=== PATIENT | female | born 1970 | race African-American/Black ===

== ENCOUNTER 2016-06-22 05:25 | Emergency (ER) | payer BC ==
[2016-06-22] MEDS ORDERED: TETRACAINE HCL 0.5% OPH SOLN 2 ML OD ONE (06:50)
[2016-06-22] MEDS ORDERED: BESIFLOXACIN HCL 0.6% OPH SUSP 5 ML BOTTLE OS ONE (07:35)
--- NOTE | 2016-06-22 07:58 | ER Document Report ---
ED General - General Chief Complaint: Redness of Eye Stated Complaint: EYE IRRITATION TRAVEL OUTSIDE OF THE [place] IN LAST 30 DAYS: No - HPI Patient complains to provider of: left eye irritation Notes: Patient coming in for approximately 4-5 days of left eye irritation. Patient states about 5 days ago felt like there is a rock in her eye states since that time denies been red with some drainage. Patient states recently was exposed to her boyfriend who also has pinkeye. States today he was using over-the- counter treatment she's tried the [id number] treatment as well with no relief. Patient also states she has 2 dark areas the medial epicondyle folds of the eye. Otherwise patient does not wear contacts does wear glasses no other trauma no fevers or chills no nausea no vomiting patient states no visual disturbances no blurry vision or double vision. Patient denies direct eye pain - Related Data Allergies/Adverse Reactions: No Known Allergies Allergy (Unverified 06/22/16 05:30) Past Medical History - Social History Smoking Status: Current Every Day Smoker Chew tobacco use (# tins/day): No Frequency of alcohol use: Occasional Drug Abuse: None Family History: Reviewed & Not Pertinent Patient has suicidal ideation: No Patient has homicidal ideation: No Neurological Medical History: Reports: Hx Migraine Renal/ Medical History: Denies: Hx Peritoneal Dialysis Past Surgical History: Reports: Hx Hysterectomy - Immunizations Hx Diphtheria, Pertussis, Tetanus Vaccination: No Review of Systems - Review of Systems Constitutional: No symptoms reported EENT: Eye discharge Cardiovascular: No symptoms reported Respiratory: No symptoms reported Gastrointestinal: No symptoms reported Genitourinary: No symptoms reported Female Genitourinary: No symptoms reported Musculoskeletal: No symptoms reported Skin: No symptoms reported Hematologic/Lymphatic: No symptoms reported Neurological/Psychological: No symptoms reported -: Yes All other systems reviewed and negative Physical Exam - Vital signs Vitals: Temp Pulse BP Pulse Ox 97.9 F 110 H 142/90 H 100 06/22/16 05:29 06/22/16 05:29 06/22/16 05:29 06/22/16 05:29 Interpretation: Normal - General General appearance: Appears well, Alert - HEENT Head: Normocephalic, Atraumatic Eyes: Normal Conjunctiva: Other - Patient does have 2 black spots in the medial Fold near the tear duct consistent possible staining by mascara is unable to be removed away with a Q-tip Cornea: Flourescein stain uptake, Opacified - Minimal opacification at approximately the 9 o'clock position near scleral ulcer. Extraocular movements intact: Yes Eyelashes: Normal Pupils: PERRL Corrective lenses worn: No Left intraocular pressure: 14 Anterior chamber: Normal Fundascopic: Normal - Respiratory Respiratory status: No respiratory distress Chest status: Nontender Breath sounds: Normal Chest palpation: Normal - Cardiovascular Rhythm: Regular Heart sounds: Normal auscultation Murmur: No - Abdominal Inspection: Normal Distension: No distension Bowel sounds: Normal Tenderness: Nontender Organomegaly: No organomegaly - Back Back: Normal, Nontender - Extremities General upper extremity: Normal inspection, Nontender, Normal color, Normal ROM , Normal temperature General lower extremity: Normal inspection, Nontender, Normal color, Normal ROM , Normal temperature, Normal weight bearing. No: Declan's sign - Neurological Neuro grossly intact: Yes Cognition: Normal Orientation: AAOx4 Dino Coma Scale Eye Opening: Spontaneous Dino Coma Scale Verbal: Oriented Dino Coma Scale Motor: Obeys Commands Dino Coma Scale Total: 15 Speech: Normal Motor strength normal: LUE, RUE, LLE, RLE Sensory: Normal - Psychological Associated symptoms: Normal affect, Normal mood - Skin Skin Temperature: Warm Skin Moisture: Dry Skin Color: Normal Course - Re-evaluation Re-evalutation: 06/22/16 08:15 Slit-lamp examination shows a scleral ulcer with some opacification of the adjacent cornea. Patient was started on Besivance. Discussed case with on- call ophthalmology . Will have the patient referred over to his office for further evaluation today at 2:00. Directions address antibiotics were given to the patient patient understands these instructions and was discharged 06/22/16 08:51 - Vital Signs Vital signs: Temp Pulse Resp BP Pulse Ox 98.5 F 74 18 127/89 H 98 06/22/16 08:28 06/22/16 08:28 06/22/16 08:28 06/22/16 08:28 06/22/16 08:28 Procedures - Eye Procedure Left Time completed: 08:00 Fluorescein applied: Left Slit lamp used: Yes Eyes picture: 1 - Multiple small black dots possible staining from his care of unable to remove with a Q-tip 2 - Area of scleral ulceration with minimal opacification of the cornea does not look to have any other corneal involvement Discharge - Discharge Clinical Impression: left scleral ulcer Condition: Good Disposition: HOME, SELF-CARE Instructions: Antibiotic Therapy ([facility]), Eyedrop Use ([facility]) Additional Instructions: Examination today is concerning for scleral ulcer. We will start you on antibiotics called Marisa. Please put to 3 drops of the antibiotic in your left eye 3 times a day. I did discuss your case were our on-call revenue enforcement agent Dr. Brigido Florez. Please follow-up in his office today at 2:00. They're going to work you with within their schedule to further evaluate your eye. Please take yourr discharge papers with you please inform the wire wrapper machine operator that your seen in the ER and per Dr. Florez's instructions your to follow-up today at 2:00 Referrals: ODESSA FLOREZ, [ACTIVE STAFF] - Follow up as needed (Follow-up today at 2:00 )
[2016-06-22 08:30] VITALS: BP 127/89
== END 2016-06-22 08:18 | disposition home or self-care (01) ==
LOC: ER 05:25
DX: H15.002 Unspecified scleritis, left eye (principal); H57.12 Ocular pain, left eye; F17.210 Nicotine dependence, cigarettes, uncomplicated; W22.8XXA Striking against or struck by other objects, initial encounter
CPT/HCPCS: 99282